=== PATIENT | male | born 1945 | race Caucasian/White ===

== ENCOUNTER → 2017-01-29 | Outpatient (CLI) | payer MEDICARE, OTHER ==
[~2017-01-29] MED LIST: CARV3.12 PO; IOHEXOL 240 MG/ML 50ML VIAL. PO ONE; IOHEXOL 300 MG/ML 100ML VIAL. IV ONE; LOSA25TA4 PO
--- NOTE | 2017-01-29 12:08 | KCIC ---
Examination: CT of the pelvis with IV contrast History: History of left lower quadrant abdominal pain COMPARISON: May 2016 TECHNIQUE: Axial CT was performed pelvis with IV contrast. Coronal and sagittal reformats are performed Exposure: One or more of the following individualized dose reduction techniques were utilized for this examination: 1. Automated exposure control 2. Adjustment of the mA and/or kV according to patient size 3. Use of iterative reconstruction technique. Findings: The visualized bibasilar lungs grossly appears unremarkable. No evidence of free air identified in the abdomen. Mild decreased attenuation noted throughout the liver likely hepatic steatosis. There is a 2.5 cm hypodensity identified in the right lobe of the liver with minimal nodular peripheral enhancement probably a hemangioma. The visualized spleen demonstrates small enhancing hyperdensities with the largest measuring 1.5 cm probably hemangioma. The visualized adrenal glands grossly appears unremarkable. The stomach is mildly distended. Small duodenal diverticulum identified. The visualized pancreas grossly appears unremarkable. The small bowel is nondilated. Feces and gas noted throughout the colon. There is a small cyst identified in the left kidney measuring 1.3 cm. The urinary bladder is mildly distended. There is minimal fat stranding identified about the urinary bladder with mild thickened appearance of the urinary bladder wall. Mild enlarged prostate gland. Mild degenerative changes lumbar spine. IMPRESSION: 1. Mild thickened appearance of the wall of the urinary bladder with surrounding fat stranding could be cystitis or underlying mucosal pathology. 2. Mild hepatic steatosis. 3. 2.5 cm probable hemangioma liver. Small enhancing densities identified in the spleen probably hemangiomas. Electronically signed by: Robel Casas MD (01/29/2017 12:04 PM) [id number]
== END | disposition home or self-care (01) ==
LOC: KCIC CT 09:51
PROVIDERS: ATTEND Physician Assistant
DX: K57.10 Diverticulosis of small intestine without perforation or abscess without bleeding (principal); N40.0 Benign prostatic hyperplasia without lower urinary tract symptoms; K76.0 Fatty (change of) liver, not elsewhere classified
CPT/HCPCS: 74177; Q9966; Q9967

== ENCOUNTER → 2017-03-19 | Outpatient (CLI) | payer MEDICARE, OTHER ==
[~2017-03-19] MED LIST changes: -IOHEXOL 240 MG/ML 50ML VIAL. PO ONE; -IOHEXOL 300 MG/ML 100ML VIAL. IV ONE
--- NOTE | 2017-03-19 15:09 | KCIC ---
Small bowel follow-through study 03/19/2017 CLINICAL HISTORY: Left lower quadrant abdominal pain for one year. TECHNIQUE: A small bowel follow-through study was performed under radiographic and intermittent fluoroscopic control. The total fluoroscopic time for this study was 37 seconds. A single digital spot radiograph of the terminal ileum was obtained. FINDINGS: Comparison is made to the patient's CT scan of the abdomen and pelvis dated 05/14/2016. 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 These demonstrate a nonobstructive bowel gas pattern. No radiopaque calculus is seen. Degenerative changes are seen involving lower thoracic and throughout the lumbar spine. The mucosal pattern of the duodenum, jejunum, ileum and terminal ileum is within normal limits. Diverticula are seen involving the third and fourth portions of the duodenum. These measure 1 to 3.8 cm in size. The small bowel transit time is within normal limits. The cecum is in its normal location within the right lower quadrant of the abdomen. No extrinsic mass effect upon the small bowel is seen. IMPRESSION: Negative study. Electronically signed by: Adriano Diaz MD (03/19/2017 3:06 PM) [id number]
== END | disposition home or self-care (01) ==
LOC: KCIC 08:54
PROVIDERS: ATTEND Internal Medicine Gastroenterology
DX: K57.10 Diverticulosis of small intestine without perforation or abscess without bleeding (principal)
CPT/HCPCS: 74250

== ENCOUNTER → 2017-05-03 | Outpatient (CLI) | payer MEDICARE, OTHER | END | disposition home or self-care (01) | LOC: KCIC MRI 09:10 | DX: S83.282A Other tear of lateral meniscus, current injury, left knee, initial encounter (principal); M17.12 Unilateral primary osteoarthritis, left knee; M71.22 Synovial cyst of popliteal space [Baker], left knee; M22.42 Chondromalacia patellae, left knee; X58.XXXA Exposure to other specified factors, initial encounter; Y93.89 Activity, other specified; Y92.89 Other specified places as the place of occurrence of the external cause; Y99.8 Other external cause status | CPT/HCPCS: 73721 ==

== ENCOUNTER → 2018-01-25 | Outpatient (CLI) | payer MEDICARE, OTHER ==
[~2018-01-25] MED LIST changes: +CONTRAST GIVEN. MC PRN; +IOHEXOL 240 MG/ML 50ML VIAL. PO ONE; +IOHEXOL 300 MG/ML 100ML VIAL. IV ONE; -LOSA25TA4 PO; +LOSA25TA5 PO
--- NOTE | 2018-01-25 11:31 | KCIC ---
CT ABD PELV W/ORAL IV CONTRAST Indication: Recurrent left-sided abdominal pain. History of appendectomy, bladder cancer and diverticulosis. Exposure: One or more of the following individualized dose reduction techniques were utilized for this examination: 1. Automated exposure control 2. Adjustment of the mA and/or kV according to patient size 3. Use of iterative reconstruction technique. Comparison: January 30, 2016 Contrast: Intravenous contrast was given. Oral contrast was given. FINDINGS: Lower thorax: Lung bases are clear. Liver: Hypodense lesion at the peripheral right lobe. This demonstrates some very subtle nodular discontinuous peripheral enhancement. Size and appearance are similar as previous exam. Spleen: Multiple small enhancing nodules, similar to prior study Pancreas: Unremarkable Adrenals: No evidence of mass. Kidneys: Hypodense lesion lower pole left kidney stable, likely a cyst. Urinary tracts: No hydronephrosis. Gallbladder: No calcified stone Lymph nodes: No significant enlargement Vessels: * Aorta: Mildly calcified, tortuous, no aneurysm. * Major aortic branches: Grossly patent. * Portal venous: Patent GI tract: There is a fluid and gas structure adjacent to the pancreas, compatible with a duodenal diverticulum, and appears similar to the previous exam. No bowel obstruction or acute colitis. Surgically absent Reproductive organs: Mildly enlarged prostate gland is stable. Urinary bladder: Unremarkable. Peritoneum: No evidence of pneumoperitoneum. No free fluid. Abdominal wall:Unremarkable Spine: Degenerative spondylosis Bones: Degenerative changes at both hips. IMPRESSION: 1. No acute findings in the abdomen or pelvis. 2. Stable liver lesion, probably a hemangioma. 3. Multiple small enhancing foci within the spleen are stable. 4. Fluid and gas structure at the duodenum, most likely a diverticulum, stable. Electronically signed by: Vega Velasco MD (01/25/2018 11:28 AM) [id number]
== END | disposition home or self-care (01) ==
LOC: KCIC CT 08:21
DX: N40.0 Benign prostatic hyperplasia without lower urinary tract symptoms (principal); Z85.51 Personal history of malignant neoplasm of bladder
CPT/HCPCS: 74177; 82565; Q9966; Q9967